=== PATIENT | female | born 1960 | race Caucasian/White ===

== ENCOUNTER 2025-06-04 13:52 | Emergency (ER) | payer OTHER, SELFPAY ==
[2025-06-04 14:00] VITALS: BP 161/96
[2025-06-04 14:21] LABS: Hematocrit 41.9 % (37.0-47.0); Hemoglobin 14.8 g/dL (12.0-16.0); Mean Corp Hgb Conc. 35.3 g/dL (33.0-37.0); Mean Corpuscular Volume 99.5 fL (81.0-99.0); Nucleated Red Blood Cells % 0 %; Platelet Count 226 10^3/uL (130-400); Red Cell Dist. Width 12.1 % (11.5-14.5)
[2025-06-04 14:44] LABS: ALT (SGPT) 17 U/L (0-35); AST (SGOT) 18 U/L (14-36); Albumin 4.5 g/dl (3.5-5.0); Alkaline Phosphatase 46 U/L (38-126); Blood Urea Nitrogen 13 mg/dl (7-17); Calcium 9.2 mg/dl (8.4-10.2); Carbon Dioxide 27 mmol/L (22-30); Chloride 106 mmol/L (98-107); Glucose 104 mg/dl (70-99); Potassium 4.3 mmol/L (3.5-5.1); Sodium 139 mmol/L (135-145); Total Protein 6.7 g/dl (6.3-8.2); eGFR > 60.00
[2025-06-04 14:49] VITALS: BMI 22.5
--- NOTE | 2025-06-04 14:52 | ED.GENMED ---
History of Present Illness
General
Chief Complaint: Cardiac Symptoms
Time Seen by Provider: 06/04/25 14:39
Phy Exam
Physical Exam
Physical Exam:
GENERAL: Alert , in no apparent distress, temperature 99
EYE: pupils equal and reactive
NECK: Supple
ENT: o/p clr, mmm.
CARDIAC: Regular rate and rhythm . Heart rate was normal, no murmurs
LUNGS: Clear breath sounds bilaterally, no acute respiratory distress, no wheezes/rales/rhonchi
ABDOMEN: Soft, without focal tenderness, no r/g, no cvat, normal bowel sounds
NEUROLOGICAL: Alert and oriented, no focal neuro deficits
SKIN: Warm and dry, skin intact.
MUSCULOSKELETAL: No edema, well perfused. neg gregorio's sign
PSYCH: Normal and appropriate interaction.
Course
Orders/Labs/Results
Orders:
Orders
06/04/25 13:53
ECG [Electrocardiogram (*1)] Urgent
Reason for Study: Palpitations
EKG- Treatment ONCE
06/04/25 14:05
Electrocardiogram (*1) Urgent
Reason for Study: Chest Pain
EKG- Treatment ONCE
06/04/25 14:09
Complete Blood Count/With Diff Urgent
Comprehensive Metabolic Panel Urgent
TSH Reflex To Free T4 Urgent
Comment: ADDON
Troponin I Urgent
06/04/25 15:07
Diphenhydramine [Benadryl] 50 mg IV NOW STA
Hydrocortisone Sod Succinate [Solu-Cortef] 200 mg IV NOW STA
06/04/25 15:08
Add On- LAB Urgent
Tests Added?: tsh reflex t4
CT Chest PE Study Urgent
Comment:
Reason For Exam: palp[itations, sob, tachy
06/04/25 15:36
COVID-19 Antigen Urgent
Source: Nasal Swab
Influenza A+B Rapid Molecular Urgent
DORYS Source: Nasal Swab
Specimen Description:
Abnormal Lab Results
06/04/25
14:09
MCV 99.5 H fL
(81.0-99.0)
MCH 35.2 H pg
(27.0-31.0)
Lymphocytes % 19.5 L %
(20.5-51.1)
Glucose 104 H mg/dl
(70-99)
06/04/25 14:09
06/04/25 14:09
Vital Signs
Initial and Last Documented VS:
Initial Vital Signs
Temp Pulse Resp BP Pulse Ox
37.2 C 108 16 161/96 98
06/04/25 14:00 06/04/25 14:00 06/04/25 14:00 06/04/25 14:00 06/04/25 14:00
Last Documented Vital Signs
Temp Pulse Resp BP Pulse Ox
37.2 C 84 15 129/70 98
06/04/25 15:00 06/04/25 16:00 06/04/25 16:00 06/04/25 16:00 06/04/25 16:45
MDM/Problems Addressed
Differential Diagnosis Includes:
see MDM
MDM/Problems Addressed:
Note:
CHIEF COMPLAINT(S)
Palpitations and tachycardia experienced around midnight.
HISTORY OF PRESENT ILLNESS
The patient is a 64-year-old female who presented with complaints of a rapid heartbeat occurring last night around midnight. The patient described the sensation as feeling very fast, which lasted approximately 30 minutes. She denied any associated
chest pain but did experience shortness of breath. she doesn't nkow how fast her rate was because she was not wearing her apple watch
. This episode resolved after about 1.5 hours, and she felt more or less normal afterward, was able to sleep. Following the episode, she was able to sleep but woke up feeling exhausted due to the disruption.
The patient also reported nausea, diarrhea, and a feeling of generalized malaise persisting today. She experienced a low-grade fever and described symptomatology resembling a viral infection, potentially COVID-19. She denied any recent travel
exceeding six hours by car or plane but noted a rather sedentary lifestyle being mostly in bed, although she attempts to walk around her house daily.
The patient mentioned a previous cardiac evaluation last fall due to unrelated concerns, which included an echocardiogram and calcium scoring, both of which were normal. Furthermore, she reported being in the emergency room multiple times over the
past year. She recalled a previous episode of potential concern for a blood clot that was resolved without a CT scan due to logistical issues during her ER visit.
The patients concern about potential deep vein thrombosis (DVT) due to her sedentary lifestyle and the potential need for a D-dimer test to rule out a clot was discussed. She expressed concern about previously suspected allergies to contrast media,
noting a past itchiness reaction to topical iodine.
CHRONIC MEDICAL CONDITIONS SIGNIFICANTLY AFFECTING CARE
None mentioned during the conversation.
SOCIAL DETERMINANTS AFFECTING HEALTH
The patient stated concerns regarding her sedentary lifestyle due to being confined mostly to bed.
ALLERGIES
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
MEDICATIONS
The patient mentioned taking Tylenol (acetaminophen) regularly.
REVIEW OF SYSTEMS
- Cardiovascular: Reports palpitations, tachycardia, resolved post-medication.
- Respiratory: Occasional shortness of breath.
- Gastrointestinal: Nausea and diarrhea, though these symptoms now seem resolved.
- Constitutional: Feels fatigued and has difficulty sleeping, partly due to the nighttime episode.
PLAN
The plan includes obtaining a D-dimer test to screen for possible blood clots, considering her low risk for DVT. Due to past concerns about contrast media allergies, a discussion about potential pre-medication treatments should a CT scan become
necessary occurred, weighing risk factors of possible anaphylaxis versus missing a clot.
DIFFERENTIAL DIAGNOSIS
The Differential Diagnosis includes, in no particular order and is not limited to:
1. Supraventricular Tachycardia
2. Atrial Fibrillation
3. Pulmonary Embolism
4. Anxiety Disorder
5. Viral Infection (e.g., COVID-19)
6. Hyperthyroidism
7. Dehydration
8. Drug-Induced Tachycardia
9. Gastroesophageal Reflux Disease
10. Hypoglycemia
64-year-old female with a history of anxiety presents for episode of elevated heart rate last night just before midnight lasting about an hour and a half causing some shortness of breath. She had no chest pain at the time. Itself resolved she was
able to sleep but then woke up and has intermittently had episodes where she felt like her heart was racing. It is causing some degree of anxiety, she also had diarrhea x 2 and felt nauseated and had chills. She went to urgent care and they sent
her here. Patient has a low-grade temperature of 99 here and was mildly tachycardic on arrival. Her EKG is sinus rhythm with a sinus arrhythmia with a rate of [address] segment elevation or depression.
She is low risk for DVT or PE and I was going to evaluate her with a D-dimer however the patient was fairly persistent that she she would feel more comfortable with a CT scan. Patient says she has had episodes of intermittent dyspnea with
tachycardia over the last couple of weeks that are nonexertional and not associated with any chest pain. She has also not had any syncope. She was seen previously within the last year by [facility] for screening for what sounds like palpitations
which was negative.
She does have a low-grade temp, diarrhea and fatigue, we sent a COVID test which is still pending but she could have a viral syndrome. Troponin was negative. Plan on CT PE study after premedication because of iodine allergy and will likely
discharge home
*Pulse Oximetry
SaO2: 98
Oxygen Mode of Delivery: Room air
ED Attending Note
-
Portions of this chart may have been created with voice recognition software.� Occasional wrong word or��sound alike� substitutions may have occurred due to the inherent limitations of voice recognition software.
Discharge Plan
Departure
Referrals:
Jeovanny Reyna MD [Family Provider, Internal Medicine]
Interventions
Interventions:
*Risk Screen - Suicide Last Done: 06/04/25 14:00
*General Assessment Last Done: 06/04/25 14:56
*Neglect/Abuse Screening Last Done: 06/04/25 14:00
*ED- Fall Risk Assessment Last Done: 06/04/25 14:56
ED- Pulmonary Assessment Last Done: 06/04/25 14:55
ED- Cardiac Assessment Last Done: 06/04/25 14:54
Discharge Date and Time
Print Language: INDONESIAN
[2025-06-04 15:00] VITALS: BP 139/85
[2025-06-04 15:04] LABS: Troponin I < 0.012 ng/ml
[2025-06-04 15:09] VITALS: BP 139/85
[2025-06-04] MEDS: BENADRYL 50 MG IV (15:29)
[2025-06-04] MEDS: SOLU-CORTEF 200 MG IV (15:29)
[2025-06-04 16:00] VITALS: BP 129/70
[2025-06-04 16:49] LABS: COVID-19 Antigen Negative (Negative)
[2025-06-04 18:04] VITALS: BP 139/79
== END 2025-06-04 18:13 | disposition home or self-care (01) ==
LOC: EMR 13:52
PROVIDERS: Emergency Medicine; Physician Assistant; EMERGENCY PHYSICIAN Emergency Medicine; FAMILY PHYSICIAN Student in an Organized Health Care Education/Training Program
DX: R00.2 Palpitations (principal); R06.02 Shortness of breath; R11.0 Nausea; R50.9 Fever, unspecified; Z11.52 Encounter for screening for COVID-19
CPT/HCPCS: 99284; 96374; 96375; 71275; 80053; 84443; 84484; 85025; 87502; 87811; 93005; Q9967